=== PATIENT | female | born 1960 ===

== ENCOUNTER 2021-11-21 09:48 | Outpatient (CLI) | payer OTHER ==
[~2021-11-21 09:48] MED LIST: AVAPRO; SYNTROID
== END 2021-11-21 09:57 | disposition home or self-care (01) ==
LOC: LAB 09:48
PROVIDERS: ATTEND Internal Medicine Sports Medicine
DX: C73 Malignant neoplasm of thyroid gland (principal); E89.0 Postprocedural hypothyroidism

== ENCOUNTER 2024-02-15 10:29 | Outpatient (CLI) | payer OTHER ==
[2024-02-16 09:11] LABS: tpo < 9 IU/mL (0-34)
== END 2024-02-15 10:36 | disposition home or self-care (01) ==
LOC: LAB 10:29
PROVIDERS: ATTEND Internal Medicine Sports Medicine
DX: C73 Malignant neoplasm of thyroid gland (principal); E89.0 Postprocedural hypothyroidism